=== PATIENT | male | born 1960 | race Caucasian/White ===

== ENCOUNTER 2022-08-22 08:33 | Observation (INO) ==
[2022-08-22 09:01] LABS: ABS Basophils 0.1 10^3/uL (0.0-0.1); ABS Eosinophils 0.1 10^3/uL (0.0-0.5); ABS Lymphocytes 1.6 10^3/uL (1.0-4.8); ABS Monocytes 1.5 10^3/uL (0.0-1.1); ABS Neutrophils 11.4 10^3/uL (1.5-7.6); ABS Nucleated RBC 0.02 10^3/ul; Eosinophil % 0.6 %; Hematocrit 47.8 % (38-53); Hemoglobin 16.6 g/dL (13.2-16.3); Lymphocyte % 11.1 %; Mean Corpuscular Hemoglobin 31.1 pg (27-33); Mean Corpuscular Hgb Conc 34.7 g/dL (31-36); Mean Corpuscular Volume 89.9 fL (80-97); Mean Platelet Volume 9.4 fL (7.5-11.2); Nucleated Red Blood Cells % 0.2 /100 WBC (0.0-0.4); Platelet Count 237 10^3/uL (150-450); Red Blood Count 5.32 10^6/uL (4.06-5.63); Red Cell Distribution Width 13.6 % (12-17); White Blood Count 14.7 10^3/uL (3.6-10.2)
[2022-08-22 09:14] LABS: Albumin 4.4 g/dL (3.2-5.2); Calcium 9.7 mg/dL (8.6-10.3); Creatinine, Serum 0.89 mg/dL (0.67-1.17); Globulin 2.2 g/dL (2-4); Potassium 4.2 mmol/L (3.5-5.0); Total Bilirubin 0.7 mg/dL (0.2-1.0); Total Protein 6.6 g/dL (6.4-8.9); eGFR CKD-EPI 98.1 (>60)
[2022-08-22 09:28] LABS: INR 1.18 (0.88-1.18)
[2022-08-22 10:16] LABS: High Sensitivity Troponin 1 Hr 4 pg/mL (<20)
[2022-08-22] MEDS ORDERED: Iohexol 350 (CONTRAST) 500 ML MDV IV ONE (19:08)
[2022-08-22] MEDS ORDERED: Piperacillin/Tazobac ADVAN 3.375 GM in NS 0.9% 100 ml BAG 100 ML IVPB ONE (20:49)
[2022-08-22] MEDS ORDERED: Nicotine PATCH 14 MG/24 HR PATCH TRANSDERM ONE (20:54)
[2022-08-22] MEDS ORDERED: Ondansetron 4 mg VIAL 2 MG/ML 2 ml VIAL IV PRN (21:03)
[2022-08-22] MEDS ORDERED: HYDROmorphone 1 MG/1 ML SYRINGE IV SLOW PU PRN (21:03)
[2022-08-22] MEDS ORDERED: oxyCODONE/Acetamin 5/325 mg TAB PO PRN (21:03)
[2022-08-22] MEDS: NS 0.9% 1000 ml BAG 1,000 ML IV SCH (21:13)
[2022-08-22] MEDS: Sucralfate 1 gm SUSP 1 GM/10 ML UDC PO SCH (23:03)
[2022-08-23] MEDS ORDERED: Piperacillin/Tazobac ADVAN 3.375 GM in NS 0.9% 100 ml BAG 100 ML IV SCH ×2 (01:00→08:30)
[2022-08-23] MEDS ORDERED: ZOSYN 3.375 GM x ONE DOSE over 30 miuntes IV (03:30)
[2022-08-23] MEDS: NS 0.9% 1000 ml BAG 1,000 ML IV SCH (06:53)
[2022-08-23] MEDS ORDERED: Enoxaparin 40 MG/0.4 ML SYR SUBCUT SCH (09:00)
[2022-08-23] MEDS ORDERED: Bupivacaine 0.25% SDV 30 ML ONE (10:14)
[2022-08-23] MEDS ORDERED: Rocuronium 50 mg VIAL 10 mg/ml 5 ml VIAL (50 mg) ONE (10:33)
[2022-08-23] MEDS ORDERED: Midazolam 2 mg/2 ml VIAL 1 mg/ml 2 ml VIAL (2 mg) ONE (10:33)
[2022-08-23] MEDS ORDERED: fentaNYL 250 mcg/5 ml 50 MCG/ML 5 ml VIAL (250 MCG) ONE (10:33)
[2022-08-23] MEDS ORDERED: Lidocaine 2% PF 5 ML VIAL ONE (10:36)
[2022-08-23] MEDS ORDERED: Ondansetron 4 mg VIAL 2 MG/ML 2 ml VIAL ONE ×3 (10:36→13:37)
[2022-08-23] MEDS ORDERED: Dexamethasone IV 4 MG/ML VIAL 1 ml VIAL ONE (10:36)
[2022-08-23] MEDS ORDERED: Propofol 10 MG/ML 20 ML BTL ONE (10:36)
[2022-08-23] MEDS ORDERED: Phenylephrine 40 mcg/mL 10mL (400mcg) SYRINGE ONE (11:21)
[2022-08-23] MEDS ORDERED: HYDROmorphone 0.5 MG/0.5 ML SYRINGE ONE ×2 (11:40→12:35)
[2022-08-23] MEDS ORDERED: Ondansetron 4 mg VIAL 2 MG/ML 2 ml VIAL IV PRN (12:26)
[2022-08-23] MEDS ORDERED: fentaNYL 100 mcg/2 ml 50 MCG/ML VIAL IV PRN (12:26)
[2022-08-23] MEDS ORDERED: Naloxone 0.4 mg VIAL 0.4 mg/ml 1 ml VIAL IV PRN (12:26)
[2022-08-23] MEDS ORDERED: HYDROmorphone 1 MG/1 ML SYRINGE IV PRN (12:26)
[2022-08-23] MEDS: Sucralfate 1 gm SUSP 1 GM/10 ML UDC PO SCH (12:52)
[2022-08-23 14:34] VITALS: BP 131/85
== END 2022-08-23 13:30 | disposition home or self-care (01) ==
LOC: EDHOLD 08:33 → ED 08:33 → SSU 23:51
PROVIDERS: ADMIT Surgery; ATTEND Surgery Surgical Critical Care